=== PATIENT | male | born 1970 | race Caucasian/White ===

== ENCOUNTER 2023-09-05 08:46 | Day surgery (SDC) | payer MEDICARE, MEDICAID ==
[~2023-09-05] VITALS: Ht 180.3 cm; Wt 75.0 kg
[~2023-09-05 08:46] MED LIST: ALLEGRA 180MG180 MG PO; BENEFIBER PO; FLOMAX 0.40.4 MG/CAP PO; FLONASEALLERGY NS; LIORESAL20 MG PO; LR 1,000 ML IV SCH; MULTI VITAMINS1 TAB PO; Ondansetron 4 MG/2 ML VIAL IV PRN; PHARMASSURE ZIN50 MG PO; POLYETHYLENE GL1 OI1; ROBINUL1 MG PO; SYSTANE 0.4%-0.1 SOL OU; TOVIAZ8 MG PO; VALIUM 5MG T5 MG/TAB PO; VITAMIND3 5000 PO; ZYRTEC 10MG10 MG PO
[2023-09-05] MEDS ORDERED: Lidocaine PF 2% (20 MG/ML) 5 ML VIAL ONE (10:07)
[2023-09-05] MEDS ORDERED: Glycopyrrolate 0.2 MG/ML 1 ML VIAL ONE (10:08)
[2023-09-05 11:45] VITALS: BP 103/71; PULSE 81; TEMP 98.3
[2023-09-05 12:00] VITALS: BP 124/72; PULSE 78
[2023-09-05 12:15] VITALS: BP 129/75; PULSE 76
[2023-09-05 12:30] VITALS: BP 119/72; PULSE 79
[2023-09-05 14:24] VITALS: BP 146/85; PULSE 92; TEMP 97.9
--- NOTE | 2023-09-05 17:42 | NUR ---
[id number]: PT TO [facility] 3 FROM ENDO S/P COLONOSCOPY WITH POLYPECTOMY A&O, PLACED ON MONITOR, VSS ON RA RECEIVED REPORT AND ASSUMED CARE OF PT FROM ZEKE HILLMAN PARENTS/CG'S AT BEDSIDE PROVIDED FOOD/FLUIDS, TOLERATING WELL MD IN TO SEE PT/FAMILY POST-PROCEDURE PT HAS REMAINED A&O, NAD, VSS ON RA, TOLERATING PO, IS WITHOUT SIGNIFICANT COMPLAINT, AT BASELINE BY END OF STAY IV D/C'D. D/C INSTRUCTIONS, ANY FOLLOW UP REVIEWED AND HANDED TO PT. ALL QUESTIONS AND CONCERNS ADDRESSED TO PT SATISFACTION. TAKEN TO EXIT IN PERSONAL WC BY PARENTS WITH ALL BELONGINGS AND PAPERWORK IN HAND
== END 2023-09-05 12:45 | disposition home or self-care (01) ==
LOC: SDCO 08:46
DX: Z12.11 Encounter for screening for malignant neoplasm of colon (principal); D12.3 Benign neoplasm of transverse colon; D12.5 Benign neoplasm of sigmoid colon; K57.30 Diverticulosis of large intestine without perforation or abscess without bleeding
CPT/HCPCS: J2704; J7120